=== PATIENT | male | born 1990 | race Caucasian/White ===

== ENCOUNTER 2019-05-29 11:45 | Emergency (ER) | payer BC, MEDICAID, OTHER ==
[~2019-05-29] VITALS: Ht 193 cm; Wt 142.7 kg
--- NOTE | 2019-05-29 13:40 | REP ---
Clinical: Pain. Non-weightbearing. Technique: AP, lateral, bilateral oblique views of the right ankle. Findings: Lateral view cannot exclude a nondisplaced fracture along the posterior aspect of the talus and correlation with physical examination and mechanism of injury may be warranted. No further acute fracture or dislocation is identified or suggested. Impression: Irregularity and possible nondisplaced fracture involving the posterior aspect of the talus on lateral radiograph. Correlation is required. Electronically Signed by Kendall Goldman MD 05/29/2019 01:32 P
--- NOTE | 2019-05-29 13:41 | REP ---
Clinical: Pain. Technique: AP, lateral, bilateral oblique views of the right foot. Findings: Ankle series better identifies a possible nondisplaced fracture and irregularity along the posterior aspect of the talus for which correlation is recommended. Remainder of the examination appears normal. Impression: 1. Cannot exclude trauma involving the posterior aspect of the talus for which clinical correlation is recommended. Electronically Signed by Kendall Goldman MD 05/29/2019 01:33 P
[2019-05-29] MEDS ORDERED: ROLLMIS8 XX (15:05)
[2019-05-29 15:19] VITALS: BP 118/61
== END 2019-05-29 15:45 | disposition home or self-care (01) ==
LOC: M ED 11:45
DX: S92.134A Nondisplaced fracture of posterior process of right talus, initial encounter for closed fracture (principal); X58.XXXA Exposure to other specified factors, initial encounter; Y92.89 Other specified places as the place of occurrence of the external cause; I10 Essential (primary) hypertension; F84.0 Autistic disorder; E03.9 Hypothyroidism, unspecified

== ENCOUNTER 2021-07-21 11:32 | Emergency (ER) | payer MEDICAID ==
[~2021-07-21] VITALS: Ht 190.5 cm; Wt 121.8 kg
[~2021-07-21 11:32] MED LIST: ROLLMIS8 XX
--- OUTSIDE RECORDS SUMMARY | 2021-07-21 11:42 | CCD ---
Author Author [facility] Address Unknown Phone Unavailable Support Name Relationship Address Phone DISABLED Next Of Kin Unknown Unavailable ST Next Of Kin Unknown Unavailable KIMBERLY SILVEIRA Next Of Kin [address] [place] [address] Re-disclosure Warning The records that you are about to access may contain information from federally-assisted alcohol or drug abuse programs. If such information is present, then the following federally mandated warning applies: This information has been disclosed to you from records protected by federal confidentiality rules (42 CFR part 2). The federal rules prohibit you from making any further disclosure of this information unless further disclosure is expressly permitted by the written consent of the person to whom it pertains or as otherwise permitted by 42 CFR part 2. A general authorization for the release of medical or other information is NOT sufficient for this purpose. The Federal rules restrict any use of the information to criminally investigate or prosecute any alcohol or drug abuse patient.The records that you are about to access may contain highly sensitive health information, the redisclosure of which is protected by Article 27-F of the [facility] Public Health law. If you continue you may have access to information: Regarding HIV / AIDS; Provided by facilities licensed or operated by the [facility] Office of Mental Health; or Provided by the [facility] Office for People With Developmental Disabilities. If such information is present, then the following [facility] mandated warning applies: This information has been disclosed to you from confidential records which are protected by state law. State law prohibits you from making any further disclosure of this information without the specific written consent of the person to whom it pertains, or as otherwise permitted by law. Any unauthorized further disclosure in violation of state law may result in a fine or chcf sentence or both. A general authorization for the release of medical or other information is NOT sufficient authorization for further disc losure. Immunizations Vaccine Date Status Description Data Source(s) COVID-19 VACCINE Moderna 10/23/2020 12:00:00 AM EST completed [facility] Vaccine Series Complete: YESThis Data wa s Submitted to [facility] Via [employer]. COVID-19 VACCINE Moderna 09/25/2020 12:00:00 AM EST completed [facility] Vaccine Series Complete: NOThis Data was Submitted to [facility] [employer]. Medications No Information Insurance Providers Payer name Policy type / Coverage type Policy ID Covered democrat ID Covered democrat's relationship to avery Policy Avery Plan Information [facility] MEDICAID [id number] SP [id number] E MEDICAID [id number] SP [id number] [facility] [id number] [id number] [facility] [id number] MO2 [id number] MEDICAID M [id number] S [id number] [facility] ([facility]) O [id number] C [id number] Problems, Conditions, and Diagnoses No Information Surgeries/Procedures No Information Results No Information Social History No Information
[2021-07-21] MEDS ORDERED: FIBE62TA PO (11:44)
[2021-07-21] MEDS ORDERED: ACET1TAB55 PO (11:44)
[2021-07-21] MEDS ORDERED: BENZ-52 PO (11:44)
[2021-07-21] MEDS ORDERED: LEVO50TA5 PO (11:44)
[2021-07-21] MEDS ORDERED: LORA1TAB4 PO (11:44)
[2021-07-21] MEDS ORDERED: LISI20TA33 PO (11:44)
[2021-07-21] MEDS ORDERED: OMEP-218 PO (11:44)
[2021-07-21] MEDS ORDERED: IBUP-1114 PO (11:44)
[2021-07-21] MEDS ORDERED: DIVA500T9 PO (11:44)
[2021-07-21] MEDS ORDERED: CHLO125TA PO (11:44)
[2021-07-21] MEDS ORDERED: MAG PO (11:44)
[2021-07-21] MEDS ORDERED: POLY510P14 PO (11:44)
[2021-07-21] MEDS ORDERED: CLOZ100T2 PO (11:44)
[2021-07-21] MEDS ORDERED: NALT50TA4 PO (11:44)
[2021-07-21] MEDS ORDERED: CALCTAB93 PO (11:44)
--- NOTE | 2021-07-21 12:37 | REP ---
INDICATION: pain, non-weight bearing ..... COMPARISON: None. TECHNIQUE: Four views FINDINGS: The small ossific density seen distal to the tip of the medial malleolus and just medial to the medial aspect of the talus. There is no evidence of soft tissue swelling. The mortise is intact. IMPRESSION: Possible small avulsion fracture of the medial aspect of the talar base. <Electronically signed by Jimbo Mallory > 07/21/21 [id number]
--- NOTE | 2021-07-21 12:38 | REP ---
INDICATION: pain, non-weight bearing ..... COMPARISON: None. TECHNIQUE: Four views FINDINGS: The joint spaces are symmetric and relatively well maintained. There is no evidence of acute fracture or destructive osseous lesion. IMPRESSION: No acute osseous abnormality involving the foot. Please see the ankle report. <Electronically signed by Jimbo Mallory > 07/21/21 [id number]
--- OUTSIDE RECORDS SUMMARY | 2021-07-21 13:23 | CCD ---
Author Author [facility] Address Unknown Phone Unavailable Support Name Relationship Address Phone DISABLED Next Of Kin Unknown Unavailable ST Next Of Kin Unknown Unavailable KIMBERLY SILVEIRA Next Of Kin [address] [place] [address] Re-disclosure Warning The records that [...] is protected by Article 27-F of the [facility] Public Health law. If you continue you may have access to information: Regarding HIV / AIDS; Provided by facilities licensed or operated by the [facility] Office of Mental Health; or Provided by the [facility] Office for People With Developmental Disabilities. If such information is present, then the following [facility] mandated warning applies: This information has [...] law may result in a fine or mcc sentence or both. A general authorization for the release of medical or other information is NOT sufficient authorization for further disc losure. Immunizations Vaccine Date Status Description Data Source(s) COVID-19 VACCINE Moderna 10/23/2020 12:00:00 AM EST completed [facility] Vaccine Series Complete: YESThis Data wa s Submitted to [facility] [employer]. COVID-19 VACCINE Moderna 09/25/2020 12:00:00 AM EST completed [facility] Vaccine Series Complete: NOThis Data was Submitted to [facility] [employer]. Medications No Information Insurance Providers Payer name Policy type / Coverage type Policy ID Covered democrat ID Covered democrat's relationship to avery Policy Avery Plan Information [facility] MEDICAID [id number] SP [id number] E MEDICAID [id number] SP [id number] [facility] [id number] [id number] [facility] [id number] MO2 [id number] MEDICAID M [id number] [facility] ([facility]) O [id number] C [id number] Problems, Conditions, and Diagnoses No Information Surgeries/Procedures No Information Results No Information Social History No Information
[2021-07-21 14:48] VITALS: BP 115/69
== END 2021-07-21 16:08 | disposition home or self-care (01) ==
LOC: M ED 11:32
DX: S92.152A Displaced avulsion fracture (chip fracture) of left talus, initial encounter for closed fracture (principal); X58.XXXA Exposure to other specified factors, initial encounter; Y92.9 Unspecified place or not applicable; Y93.9 Activity, unspecified; Y99.9 Unspecified external cause status; F84.0 Autistic disorder; I10 Essential (primary) hypertension; K21.9 Gastro-esophageal reflux disease without esophagitis; E03.9 Hypothyroidism, unspecified; Z79.890 Hormone replacement therapy; Z79.899 Other long term (current) drug therapy